=== PATIENT | male | born 1965 | race Caucasian/White ===

== ENCOUNTER 2017-10-08 11:44 | Day surgery (SDC) | payer OTHER ==
[~2017-10-08] VITALS: Ht 185.4 cm; Wt 122.4 kg
[~2017-10-08 11:44] MED LIST: ALLOPURINOL300 MG PO; ASPIR 8181 M1 PO; CRESTOR40 MG PO; GLIMEPIRIDE1 MG PO; HYDROCHLOROTHIA25 MG PO; JANUVIA100 MG PO; LISINOPRIL40 MG PO; OMEPRAZOLE40 M1 PO; VICTOZA0.6 MG/0.1 SC; ZANTAC150 MG PO
[2017-10-08 12:05] VITALS: BP 140/88
[2017-10-08 13:26] LABS: CHLORIDE 101 MEQ/L (99-109); GFR ESTIMATE (CALCULATED) > 59 mL/min/ (58.99-99999); GLUCOSE 130 mg/dL (70-99); POTASSIUM 3.9 MEQ/L (3.7-5.4); SODIUM 139 MEQ/L (136-147); UREA NITROGEN (BUN) 24 mg/dL (9-23)
[2017-10-08 18:31] VITALS: BP 139/86
[2017-10-08] MEDS ORDERED: NORCO 5/3251 TABLET PO (18:36)
[2017-10-08 18:56] VITALS: BP 135/90
== END 2017-10-08 19:20 | disposition home or self-care (01) ==
LOC: SDC 11:44
PROVIDERS: Surgery
DX: K40.90 Unilateral inguinal hernia, without obstruction or gangrene, not specified as recurrent (principal); D17.6 Benign lipomatous neoplasm of spermatic cord; I10 Essential (primary) hypertension; E11.9 Type 2 diabetes mellitus without complications; Z79.4 Long term (current) use of insulin; M19.90 Unspecified osteoarthritis, unspecified site; M10.9 Gout, unspecified; E78.00 Pure hypercholesterolemia, unspecified; K21.9 Gastro-esophageal reflux disease without esophagitis; Z87.442 Personal history of urinary calculi; Z96.643 Presence of artificial hip joint, bilateral; Z86.010 Personal history of colon polyps; G47.30 Sleep apnea, unspecified; Z79.82 Long term (current) use of aspirin; Z88.8 Allergy status to other drugs, medicaments and biological substances
CPT/HCPCS: 80048; 82948; 93005; C1781; J0131; J0690; J1170; J2250; S0020